=== PATIENT | male | born 1985 | race Caucasian/White ===

== ENCOUNTER 2021-03-26 05:06 | Inpatient (IN) | payer MEDICAID ==
[~2021-03-26] VITALS: Ht 154.9 cm; Wt 54.9 kg
[2021-03-26] MEDS ORDERED: MAGNESIUM/ALUMINUM HYDROXIDE/SIMETHICONE 30ML UDC PO STA (05:32)
[2021-03-26] MEDS ORDERED: ONDANSETRON 4MG ODT PO STA (05:32)
[2021-03-26 05:53] LABS: CLARITY URINE CLOUDY (CLEAR); COLOR URINE DARK YELLOW (YELLOW); KETONES URINE TRACE (NEGATIVE); LEUKOCYTE ESTERASE URINE TRACE (NEGATIVE); NITRITE URINE NEGATIVE (NEGATIVE); OCCULT BLOOD URINE NEGATIVE (NEGATIVE); PROTEIN URINE 1+ (NEGATIVE); SPECIFIC GRAVITY URINE 1.027 (1.005-1.030)
[2021-03-26 06:04] LABS: BASOPHILS % 0.2 % (0.0-2.0); EOSINOPHILS % 0.1 % (0.0-5.0); HEMATOCRIT. 55.3 % (42.0-52.0); HEMOGLOBIN. 18.2 g/dL (14.0-18.0); LYMPHOCYTES % 7.8 % (20.0-50.0); MEAN CORPUSCULAR HEMOGLOBIN 30.3 pg (28.0-32.0); MEAN CORPUSCULAR VOLUME 91.9 fL (80.0-94.0); MEAN PLATELET VOLUME 8.9 fl (7.4-10.4); NEUTROPHILS % 82.9 % (40.0-76.0); PLATELET 352 x1000/uL (130-400); RED BLOOD CELL COUNT 6.02 mill/uL (4.7-6.1); RED CELL DISTRIBUTION WIDTH 13.5 % (11.6-14.6)
[2021-03-26 06:09] LABS: *AMPHETAMINES SCREEN URINE PRESUMTIVE POSITIVE (NEGATIVE); *BARBITURATES SCREEN URINE NEGATIVE (NEGATIVE)
[2021-03-26 06:10] LABS: *BENZODIAZEPINES SCREEN URINE NEGATIVE (NEGATIVE); *COCAINE SCREEN URINE NEGATIVE (NEGATIVE); CANNABINOID URINE SCREEN PRESUMTIVE POSITIVE (NEGATIVE); METHADONE URINE SCREEN NEGATIVE (NEGATIVE); OPIATES URINE SCREEN NEGATIVE (NEGATIVE); PHENCYCLIDINE URINE SCREEN NEGATIVE (NEGATIVE)
[2021-03-26 06:10] LABS: CHLORIDE 95 mEq/L (98-107)
[2021-03-26 06:14] LABS: ETHANOL BLOOD < 10 mg/dL
[2021-03-26] MEDS ORDERED: MORPHINE SULFATE 4 MG/ML CPJ (NOT FOR IM USE) IV STA (07:05)
[2021-03-26] MEDS ORDERED: ONDANSETRON HCL 4MG/2ML INJ IV STA (07:05)
[2021-03-26] MEDS ORDERED: SODIUM CHLORIDE 0.9% 1,000 ML IV ONE (07:15)
[2021-03-26] MEDS ORDERED: MORPHINE SULFATE 2 MG/ML CPJ (NOT FOR IM USE) IV PRN (09:30)
[2021-03-26] MEDS ORDERED: IPRATROPIUM/ALBUTEROL 0.5-3(2.5)MG/3ML NEB HHN PRN (09:30)
[2021-03-26] MEDS ORDERED: DIPHENHYDRAMINE 50MG/ML VIAL IV PRN (09:30)
[2021-03-26] MEDS: DEXT 5%/0.9% NACL 1,000 ML IV SCH (10:00)
[2021-03-26] MEDS: PIPERACILLIN/TAZ 3.375G PREMIX 50 ML IV SCH ×2 (10:00→14:00)
[2021-03-26] MEDS: ONDANSETRON HCL 4MG/2ML INJ IV PRN ×2 (13:01→15:42)
[2021-03-26] MEDS ORDERED: ONDANSETRON HCL 4MG/2ML INJ IV PRN (15:30)
[2021-03-26] MEDS ORDERED: SODIUM CHLORIDE 0.9% 500 ML IV ONE (19:00)
[2021-03-26] MEDS: METOCLOPRAMIDE HCL 10MG/2ML VIAL IV PRN (19:23)
[2021-03-26] MEDS ORDERED: DEXTROSE 50% WATER 50ML SYRINGE IV PRN (22:45)
[2021-03-26 23:47] VITALS: BP 136/91
[2021-03-27] VITALS: BP_SYST 136
[2021-03-27] MEDS: METOCLOPRAMIDE HCL 10MG/2ML VIAL IV PRN (02:06)
[2021-03-27 04:00] VITALS: BP 130/93
[2021-03-27] MEDS: DEXT 5%/0.9% NACL 1,000 ML IV SCH ×2 (05:19→14:35)
[2021-03-27] MEDS: PIPERACILLIN/TAZ 3.375G PREMIX 50 ML IV SCH (05:19)
[2021-03-27] MEDS: BLOOD SUGAR DIAGNOSTIC STRIP TEST SCH ×4 (06:53→21:00)
[2021-03-27] MEDS: INSULIN LISPRO 100 UNITS/ML SUBCUT SCH ×4 (07:50→21:00)
[2021-03-27 08:51] LABS: CHLORIDE 92 mEq/L (98-107)
[2021-03-27 09:02] LABS: CREATINE KINASE 367 IU/L (39-308)
[2021-03-27 09:18] LABS: BASOPHILS % 0.1 % (0.0-2.0); EOSINOPHILS % 0.1 % (0.0-5.0); HEMATOCRIT. 54.3 % (42.0-52.0); LYMPHOCYTES % 9.8 % (20.0-50.0); MEAN CORPUSCULAR HEMOGLOBIN 31.7 pg (28.0-32.0); MEAN CORPUSCULAR VOLUME 90.4 fL (80.0-94.0); MEAN PLATELET VOLUME 9.6 fl (7.4-10.4); MONOCYTES % 12.3 % (2.0-8.0); NEUTROPHILS % 77.7 % (40.0-76.0); PLATELET 319 x1000/uL (130-400); RED CELL DISTRIBUTION WIDTH 13.3 % (11.6-14.6)
[2021-03-27 09:46] LABS: PHOSPHORUS 8.6 mg/dL (2.5-4.9)
[2021-03-27 12:00] VITALS: BP 132/94
[2021-03-27 16:00] VITALS: BP 130/93
[2021-03-27] MEDS ORDERED: PIPERACILLIN/TAZOBACTAM 3.375G in DEXT 5% WATER 50ML IV SCH (16:30)
[2021-03-27 20:00] VITALS: BP 108/77
== END 2021-03-27 22:58 | disposition left against medical advice (07) | DRG 720 ==
LOC: ER 05:27 → 6EST 08:47 → ENRESERV 19:26
PROVIDERS: ADMIT Internal Medicine; ATTEND Internal Medicine
DX: A41.9 Sepsis, unspecified organism (principal); N17.9 Acute kidney failure, unspecified; E44.0 Moderate protein-calorie malnutrition; K56.609 Unspecified intestinal obstruction, unspecified as to partial versus complete obstruction; E87.1 Hypo-osmolality and hyponatremia; F15.10 Other stimulant abuse, uncomplicated; N18.9 Chronic kidney disease, unspecified; Z68.22 Body mass index [BMI] 22.0-22.9, adult; Z20.822 Contact with and (suspected) exposure to COVID-19; Z53.29 Procedure and treatment not carried out because of patient's decision for other reasons
CPT/HCPCS: 36415; 71045; 74018; 74176; 80053; 80305; 80320; 81003; 82533; 82550; 82962; 83036; 83735; 83935; 84100; 84443; 85025; 87426; 93005; 99285; J1815; J2270; J2405; J2543; J2765; J7030; J7042; J7060; Q0162; A4315; G0480